=== PATIENT | female | born 1975 ===

== ENCOUNTER 2017-04-16 07:50 | Emergency (ER) | payer MEDICAID, OTHER ==
[2017-04-16 07:50] VITALS: BMI 30.2
[2017-04-16 07:59] VITALS: BP 111/54; PULSE 81; RESP 22; TEMP 97.4; O2SAT 98
[2017-04-16 09:59] LABS: BASO % 0.5 % (0.0-2.0); EOS # 0.2 K/uL (0.0-0.7); EOS % 1.9 % (0.0-4.0); HEMOGLOBIN 13.2 g/dL (12.0-16.0); LYMPH # 2.2 K/uL (1.0-4.3); LYMPH % 26.6 % (20.0-40.0); MEAN CELL VOLUME 90.3 fl (81.0-99.0); MEAN CORPUSCULAR HEMOGLOBIN 29.4 pg (27.0-31.0); MEAN CORPUSCULAR HGB CONC 32.5 g/dL (33.0-37.0); MEAN PLATELET VOLUME 9.7 fl (7.2-11.7); MONO # 0.6 K/uL (0.0-0.8); MONO % 6.9 % (0.0-10.0); NEUT # 5.2 K/uL (1.8-7.0); NEUT % 64.1 % (50.0-75.0); NRBC % 0.1 % (0.0-0.0); RBC 4.51 Mil/uL (3.80-5.20); RED CELL DISTRIBUTION WIDTH 14.2 % (11.5-14.5); WHITE BLOOD COUNT 8.1 K/uL (4.8-10.8)
[2017-04-16 10:23] LABS: BLOOD UREA NITROGEN 18 mg/dl (7-17); CALCIUM 8.9 mg/dL (8.4-10.2); GFR AFRICAN-AMERICAN > 60; GFR NON-AFRICAN AMERICAN > 60
--- NOTE | 2017-04-16 11:45 | ED PDOC ---
HPI: Chest Pain Time Seen by Provider: 04/16/17 09:07 Chief Complaint (Nursing): Chest Pain Chief Complaint (Provider): Chest Pain History Per: Patient History/Exam Limitations: no limitations Additional Complaint(s): 42 y/o female with a past medical history of schizoaffective disorder, presents to the ER complaining of chest pain, intermittent for 20 years. Pain is non- exertional, non-radiating, comes and goes. States she is depressed and lost her medications. Patient requesting to speak to a social media assistant and psychiatrist. No suicidal or homicidal ideation. Denies any shortness of breath, nausea, vomiting, dizziness, or headache. PMD: Provider TBD Past Medical History Reviewed: Historical Data, Nursing Documentation, Vital Signs Vital Signs: Last Vital Signs Temp 97.4 F L 04/16/17 07:59 Pulse 81 04/16/17 07:59 Resp 22 04/16/17 07:59 BP 111/54 L 04/16/17 07:59 Pulse Ox 98 04/16/17 11:59 - Medical History PMH: Arthritis, Bipolar Disorder, Schizophrenia (Schizoaffective disorder) Denies: Bronchitis (possible bronchitis), Diabetes, Hepatitis, HIV (Pt denies ), HTN (Pt denies), Chronic Kidney Disease, Seizures (Pt denies), Sexually Transmitted Disease (Pt denies) - Surgical History Surgical History: Cholecystectomy Other surgeries: fallopian tube removal - Family History Family History: States: Unknown Family Hx - Immunization History Hx Tetanus Toxoid Vaccination: No Hx Influenza Vaccination: No Hx Pneumococcal Vaccination: No - Home Medications Home Medications: Ambulatory Orders Medication Instructions Recorded Doxycycline Hyclate 100 mg PO BID #14 cap 02/03/17 Ibuprofen [Motrin Tab] 600 mg PO Q8 PRN #30 tab 02/03/17 ARIPiprazole [Abilify] 10 mg PO DAILY 30 Days #30 tab 02/12/17 Divalproex [Depakote ER(ONCE 1,000 mg PO HS 30 Days #60 ter 02/12/17 DAILY)] Gabapentin [Neurontin] 100 mg PO TID 30 Days #90 cap 02/12/17 traZODone [Desyrel] 50 mg PO HS 30 Days #30 tab 02/12/17 - Allergies Allergies/Adverse Reactions: Allergies Allergy/AdvReac Type Severity Reaction Status Date / Time haloperidol [From Haldol] Allergy RASH Verified 04/16/17 08:16 red dye Allergy RASH Verified 04/16/17 08:16 LEE Risk Score for UA/NSTEMI - LEE Risk Score Age > 64: NO 3 or more CAD Risk Factors: NO Known CAD (Stenosis greater than 50%): NO Aspirin use in past 7 days: NO Severe Angina: NO EKG ST changes greater than 0.5mm: NO Positive Cardiac Marker: NO LEE Score: 0 Risk %: 5% Wells Criteria for PE - Wells Criteria for Pulmonary Embolism Clinical Signs and Symptoms of DVT: No P.E is #1 Diagnosis, or Equally Likely: No Heart Rate >100: No Immobilization at least 3 days;Surgery previous 4 weeks: No Previous, objectively diagnosed PE or DVT: No Hemoptysis: No Malignancy w/treatment within 6 months, or palliative: No Total Score: 0 Review of Systems ROS Statement: Except As Marked, All Systems Reviewed And Found Negative Cardiovascular: Positive for: Chest Pain Respiratory: Negative for: Shortness of Breath, SOB with Exertion Gastrointestinal: Negative for: Nausea, Vomiting Neurological: Negative for: Headache, Dizziness Psych: Negative for: Suicidal ideation Physical Exam - Reviewed Nursing Documentation Reviewed: Yes Vital Signs Reviewed: Yes - Physical Exam Appears: Positive for: Non-toxic, No Acute Distress Head Exam: Positive for: ATRAUMATIC, NORMOCEPHALIC Skin: Positive for: Normal Color, Warm, Dry Eye Exam: Positive for: EOMI, Normal appearance, PERRL Neck: Positive for: Normal, Painless ROM, Supple Cardiovascular/Chest: Positive for: Regular Rate, Rhythm, Chest Non Tender. Negative for: Murmur Respiratory: Positive for: Normal Breath Sounds. Negative for: Accessory Muscle Use, Respiratory Distress Gastrointestinal/Abdominal: Positive for: Normal Exam, Bowel Sounds, Soft. Negative for: Tenderness Back: Positive for: Normal Inspection. Negative for: Vertebral Tenderness Extremity: Positive for: Normal ROM. Negative for: Pedal Edema, Deformity Neurologic/Psych: Positive for: Alert, Oriented - Laboratory Results Result Diagrams: 04/16/17 09:50 04/16/17 09:50 - ECG O2 Sat by Pulse Oximetry: 98 (RA) Pulse Ox Interpretation: Normal Medical Decision Making Medical Decision Making: Initial Impression: 1. Chronic chest Pain, r/o ACS 2. Depression Time: 9:28 Initial Plan: --BMP --Troponin I --CBC --EKG --Crisis evaluation Labs reviewed, and are grossly normal. Troponin is negative. Patient was evaluated by crisis, and will be discharged per Dr. Nunez. Given outpatient follow up. Upon provider evaluation patient is medically stable, and requires no further treatment in the ED at this time. Patient provided with resources for the homeless, as requested. Scribe Attestation: Documented by Maddi Schmitd, acting as a scribe for Becky Pinto MD Provider Scribe Attestation: All medical record entries made by the Scribe were at my direction and personally dictated by me. I have reviewed the chart and agree that the record accurately reflects my personal performance of the history, physical exam, medical decision making, and the department course for this patient. I have also personally directed, reviewed, and agree with the discharge instructions and disposition. Disposition - Clinical Impression Clinical Impression: Chest pain, Schizoaffective disorder - Patient ED Disposition Is Patient to be Admitted: No Counseled Patient/Family Regarding: Studies Performed, Diagnosis, Need For Followup - Disposition Referrals: [facility] [Outside] [facility] [Outside] Disposition: Routine/Home Disposition Time: 11:45 Condition: GOOD Additional Instructions: Follow up with your PCP in 2 -3 days. Instructions: Chest Pain (DC)
--- NOTE | 2017-04-17 08:45 | CARD ---
APPROVED REPORT EKG Measurement Heart [id number] <Conclusion> Normal sinus rhythm Incomplete RBBB Prolonged QT Abnormal ECG
== END 2017-04-16 11:52 | disposition home or self-care (01) ==
LOC: H.ER 07:50
DX: R07.89 Other chest pain (principal); F25.9 Schizoaffective disorder, unspecified; F31.9 Bipolar disorder, unspecified; G89.29 Other chronic pain; Z59.0 Homelessness

== ENCOUNTER 2017-04-23 19:27 | Emergency (ER) | payer OTHER ==
--- NOTE | 2017-04-23 19:44 | ED PDOC ---
HPI: Psych/Substance Abuse Time Seen by Provider: 04/23/17 19:41 Chief Complaint (Nursing): Alcohol Ingestion Chief Complaint (Provider): Acute alcohol intoxication History Per: EMS History/Exam Limitations: intoxication Additional Complaint(s): Patient is a 42 y/o female with no significant past medical history brought to the emergency department by EMS for acute alcohol intoxication. Per EMS, they were called to the homeless residential for complaint of alcohol intoxication. Patient was calm and cooperative until she arrived at the ED where she became aggressive towards staff. History is limited due to patient's intoxicated and uncooperative state. Per EMS, patient denied any medical complaints, trauma, or injuries. PCP: none provided Past Medical History Reviewed: Historical Data, Nursing Documentation, Vital Signs Vital Signs: Last Vital Signs Temp 98.9 F 04/23/17 19:31 Pulse 91 H 04/23/17 19:31 Resp 18 04/23/17 19:31 BP Pulse Ox 97 04/23/17 19:31 - Medical History PMH: Arthritis, Bipolar Disorder, Schizophrenia (Schizoaffective disorder) Denies: Bronchitis (possible bronchitis), Diabetes, Hepatitis, HIV (Pt denies ), HTN (Pt denies), Chronic Kidney Disease, Seizures (Pt denies), Sexually Transmitted Disease (Pt denies) - Surgical History Surgical History: Cholecystectomy - Family History Family History: States: Unknown Family Hx - Immunization History Hx Tetanus Toxoid Vaccination: No Hx Influenza Vaccination: No Hx Pneumococcal Vaccination: No - Home Medications Home Medications: Ambulatory Orders Medication Instructions Recorded Doxycycline Hyclate 100 mg PO BID #14 cap 02/03/17 Ibuprofen [Motrin Tab] 600 mg PO Q8 PRN #30 tab 02/03/17 ARIPiprazole [Abilify] 10 mg PO DAILY 30 Days #30 tab 02/12/17 Divalproex [Depakote ER(ONCE 1,000 mg PO HS 30 Days #60 ter 02/12/17 DAILY)] Gabapentin [Neurontin] 100 mg PO TID 30 Days #90 cap 02/12/17 traZODone [Desyrel] 50 mg PO HS 30 Days #30 tab 02/12/17 - Allergies Allergies/Adverse Reactions: Allergies Allergy/AdvReac Type Severity Reaction Status Date / Time haloperidol [From Haldol] Allergy RASH Verified 04/23/17 19:31 red dye Allergy RASH Verified 04/23/17 19:31 Review of Systems ROS Statement: Except As Marked, All Systems Reviewed And Found Negative Constitutional: Positive for: Other (EtOH intoxication) Musculoskeletal: Negative for: Other (trauma or injuries) Physical Exam - Reviewed Nursing Documentation Reviewed: Yes Vital Signs Reviewed: Yes - Physical Exam Appears: Positive for: Uncomfortable (moderate distress) Head Exam: Positive for: ATRAUMATIC, NORMAL INSPECTION, NORMOCEPHALIC Skin: Positive for: Normal Color, Warm, Dry Eye Exam: Positive for: Normal appearance Neck: Positive for: Normal, Supple Cardiovascular/Chest: Positive for: Regular Rate, Rhythm. Negative for: Murmur Respiratory: Positive for: Normal Breath Sounds. Negative for: Accessory Muscle Use, Rhonchi, Wheezing, Respiratory Distress Gastrointestinal/Abdominal: Positive for: Normal Exam, Soft. Negative for: Tenderness, Mass, Distended Extremity: Positive for: Normal ROM. Negative for: Tenderness, Pedal Edema, Deformity, Swelling Neurologic/Psych: Positive for: Alert, gate clerk II-XII, Oriented (x3) - ECG O2 Sat by Pulse Oximetry: 97 (RA) Pulse Ox Interpretation: Normal Medical Decision Making Medical Decision Making: Time: 19:42 Initial impression: Acute alcohol intoxication Initial plan: Ativan 2 mg IM Patient was noted to be yelling and very aggressive in the ED, requiring 4 point restraints. Security at beside. 21:10 On reevaluation, patient is awake, alert, calm, and cooperative. Slurred speech still noted. Patient admits to drinking but denies trauma, injuries, or any medical complaints. 23:30 Patient observed to be sleeping, breathing is easy and unlabored. Etoh level ordered and is still pending. Case endorsed to IVONNE Pang at 0000 pending etoh level, re-evaluation and final dispo. ~ Scribe Attestation: Documented by Tamar Shaw, acting as a scribe for IVONNE Hernández. Provider Scribe Attestation: All medical record entries made by the Scribe were at my direction and personally dictated by me. I have reviewed the chart and agree that the record accurately reflects my personal performance of the history, physical exam, medical decision making, and the department course for this patient. I have also personally directed, reviewed, and agree with the discharge instructions and disposition. Disposition - Clinical Impression Clinical Impression: Alcohol intoxication - Disposition Disposition: Transfer of Care (Case endorsed to IVONNE Pang at 0000 pending etoh level, re-evaluation and final disposition.) Disposition Time: 00:00 Condition: STABLE Forms: [facility] (Uzbek) - PA / MIDDLE SCHO[employer] TUTOR / Resident Statement MD/DO has reviewed & agrees with the documentation as recorded.
[2017-04-23 22:48] VITALS: PULSE 91; RESP 18; TEMP 98.9; O2SAT 97; BMI 33.2
--- NOTE | 2017-04-24 03:34 | ED PDOC ---
- ECG O2 Sat by Pulse Oximetry: 97 (RA) - Progress ED Course And Treament: 0000 Signed out to me pending sobriety. 0200 Pt. sleeping comfortably and in no distress. Easily arousable. Pt. with hx of schizoaffective disorder. 0230 Pt. evaluated by Patricia, overhead worker, who discussed case with Dr. Limon and cleared pt. for discharge. 0519 On re-evaluation, pt. in no distress. Gait steady. Offers no complaints. Disposition - Clinical Impression Clinical Impression: Alcohol intoxication - POA Present On Arrival: None - Disposition Referrals: [facility] [Outside] Disposition: Routine/Home Disposition Time: 02:30 Condition: STABLE Instructions: Alcohol Intoxication (ED) Forms: [facility] (Thai)
== END 2017-04-24 06:15 | disposition home or self-care (01) ==
LOC: H.ER 19:27
DX: F10.129 Alcohol abuse with intoxication, unspecified (principal); F31.9 Bipolar disorder, unspecified

== ENCOUNTER 2017-04-25 20:39 | Emergency (ER) | payer OTHER ==
[2017-04-25 20:39] VITALS: BMI 33.2
[2017-04-25 21:32] VITALS: BP 112/52; PULSE 79; RESP 17; TEMP 97.8; O2SAT 98
--- NOTE | 2017-04-25 21:59 | ED PDOC ---
HPI: Psych/Substance Abuse Time Seen by Provider: 04/25/17 21:00 Chief Complaint (Nursing): Cough, Cold, Congestion Chief Complaint (Provider): URI History Per: Patient Additional Complaint(s): Pt is a 42 yo female, PMH of [place], Bipolar Disorder and Schizophrenia, ambulated to ED for evaluation of cough, runny nose, itchy throat X today. No fever or chills. no medications taken to aleviate symptoms thus far. Past Medical History Reviewed: Historical Data, Nursing Documentation, Vital Signs Vital Signs: Last Vital Signs Temp 97.8 F 04/25/17 21:26 Pulse 79 04/25/17 21:26 Resp 17 04/25/17 21:26 BP 112/52 L 04/25/17 21:26 Pulse Ox 98 04/25/17 21:26 - Medical History PMH: Arthritis, Bipolar Disorder, Schizophrenia (Schizoaffective disorder) Denies: Bronchitis (possible bronchitis), Diabetes, Hepatitis, HIV (Pt denies ), HTN (Pt denies), Chronic Kidney Disease, Seizures (Pt denies), Sexually Transmitted Disease (Pt denies) - Surgical History Surgical History: Cholecystectomy - Family History Family History: States: Unknown Family Hx - Immunization History Hx Tetanus Toxoid Vaccination: No Hx Influenza Vaccination: No Hx Pneumococcal Vaccination: No - Home Medications Home Medications: Ambulatory Orders Medication Instructions Recorded Doxycycline Hyclate 100 mg PO BID #14 cap 02/03/17 Ibuprofen [Motrin Tab] 600 mg PO Q8 PRN #30 tab 02/03/17 ARIPiprazole [Abilify] 10 mg PO DAILY 30 Days #30 tab 02/12/17 Divalproex [Depakote ER(ONCE 1,000 mg PO HS 30 Days #60 ter 02/12/17 DAILY)] Gabapentin [Neurontin] 100 mg PO TID 30 Days #90 cap 02/12/17 traZODone [Desyrel] 50 mg PO HS 30 Days #30 tab 02/12/17 Guaifenesin/Pseudoephedrne HCl 1 tab PO DAILY PRN #30 ter 04/25/17 [Mucinex D 600 mg-60 mg] Promethazine HCl/Codeine 5 ml PO HS #80 ml 04/25/17 [Prometh-Codein 6.25-10 mg/5 ml] - Allergies Allergies/Adverse Reactions: Allergies Allergy/AdvReac Type Severity Reaction Status Date / Time haloperidol [From Haldol] Allergy RASH Verified 04/23/17 19:31 red dye Allergy RASH Verified 04/23/17 19:31 Review of Systems ROS Statement: Except As Marked, All Systems Reviewed And Found Negative ENT: Positive for: Nose Congestion Respiratory: Positive for: Cough Physical Exam - Reviewed Nursing Documentation Reviewed: Yes Vital Signs Reviewed: Yes - Physical Exam Appears: Positive for: Well, Non-toxic, No Acute Distress Head Exam: Positive for: ATRAUMATIC, NORMAL INSPECTION, NORMOCEPHALIC Skin: Positive for: Normal Color, Warm, DRY Eye Exam: Positive for: EOMI, Normal appearance, PERRL ENT: Positive for: Normal ENT Inspection Neck: Positive for: Normal, Painless ROM Cardiovascular/Chest: Positive for: Regular Rate, Rhythm Respiratory: Positive for: CNT, Normal Breath Sounds Gastrointestinal/Abdominal: Positive for: Normal Exam, Bowel Sounds, Soft Back: Positive for: Normal Inspection Extremity: Positive for: Normal ROM Neurologic/Psych: Positive for: Alert, Oriented - ECG O2 Sat by Pulse Oximetry: 98 Medical Decision Making Medical Decision Making: CXR: NAd, as read by MAY Supportive care measures discussed, as well as common URI like symptoms and duration Disposition - Clinical Impression Clinical Impression: Upper respiratory infection - Patient ED Disposition Is Patient to be Admitted: No - Disposition Disposition: Routine/Home Disposition Time: 22:00 Condition: STABLE Prescriptions: Guaifenesin/Pseudoephedrne HCl [Mucinex D 600 mg-60 mg] 1 tab PO DAILY PRN #30 ter PRN Reason: congestion Promethazine HCl/Codeine [Prometh-Codein 6.25-10 mg/5 ml] 5 ml PO HS #80 ml Instructions: Upper Respiratory Infection in Children (ED) Forms: [employer] [facility] (East [place]orese)
--- NOTE | 2017-04-26 09:00 | RAD ---
HISTORY: cough COMPARISON: Chest radiographs 02/05/2017. TECHNIQUE: Chest PA and lateral FINDINGS: LUNGS: No active pulmonary disease. PLEURA: No significant pleural effusion identified. No pneumothorax apparent. CARDIOVASCULAR: Normal. OSSEOUS STRUCTURES: No significant abnormalities. VISUALIZED UPPER ABDOMEN: Normal. OTHER FINDINGS: None. IMPRESSION: No interval acute cardiopulmonary disease appreciated.
== END 2017-04-25 23:07 | disposition home or self-care (01) ==
LOC: H.ER 20:39
DX: J06.9 Acute upper respiratory infection, unspecified (principal); F20.9 Schizophrenia, unspecified; F31.9 Bipolar disorder, unspecified